=== PATIENT | female | born 1995 | race Caucasian/White ===

== ENCOUNTER 2020-08-31 15:33 | Outpatient (REF) | payer OTHER, SELFPAY ==
[2020-09-03 18:11] LABS: C. trachomatis RNA TMA DETECTED (NOT DETECTED); N. gonorrhoeae RNA TMA NOT DETECTED (NOT DETECTED)
== END 2020-08-31 15:34 | disposition home or self-care (01) ==
LOC: HO.LAB 15:33
PROVIDERS: PCP Internal Medicine; Visit Provider Advanced Practice Midwife
DX: O99.320 Drug use complicating pregnancy, unspecified trimester (principal); F12.90 Cannabis use, unspecified, uncomplicated; O21.9 Vomiting of pregnancy, unspecified; Z3A.00 Weeks of gestation of pregnancy not specified
CPT/HCPCS: 36415; 87491; 87591; 99212

== ENCOUNTER 2020-09-06 14:41 | Outpatient (REF) | payer OTHER, SELFPAY ==
--- NOTE | ~2020-09-06 | US_ITS ---
EXAMINATION: US OBSTETRICAL ULTRASOUND CLINICAL INFORMATION: Check size and dates COMPARISON: None. LMP: 06/30/2020. Gestational age by maternal dates is 9 weeks 5 days. Estimated date of delivery by maternal dates is 04/06/2021. TECHNIQUE: Transabdominal abdominal first trimester OB ultrasound FINDINGS: There is a single intrauterine gestational sac with visible yolk sac, embryo/fetus, and cardiac activity. There is a 0.6 x 1.1 x 1.3 cm anechoic area adjacent to the gestational sac questionable for a small subchorionic hemorrhage or hematoma. HR: 152 beats per minute. CRL (crown rump length): 2.6 cm (9 weeks 3 days +/- 4 days). MIKE (estimated date of delivery): 04/08/2021 +/- 4 days. MATERNAL ADNEXA: The right maternal ovary measures 3.6 x 1.9 x 2.5 cm. The left maternal ovary measures 3.1 x 2 x 2.3 cm. there is a 1.8 x 1.1 x 1 cm complex left ovarian cyst probably representing a corpus luteum. There is no significant maternal adnexal mass. No maternal pelvic ascites. US/US OB <= 14 weeks fetus IMPRESSION: 1. Single intrauterine gestation with ultrasound gestational age of 9 weeks 3 days +/- 4 days. 2. Estimated date of delivery is 04/08/2021 +/- 4 days. 3. No maternal adnexal mass or pelvic ascites.
== END 2020-09-06 14:42 | disposition home or self-care (01) ==
LOC: HO.US 14:41
PROVIDERS: PCP Internal Medicine; Visit Provider Advanced Practice Midwife
DX: O26.849 Uterine size-date discrepancy, unspecified trimester (principal)
CPT/HCPCS: 76801

== ENCOUNTER → 2020-09-21 13:57 | Outpatient (BNVA) | payer OTHER, SELFPAY | PROVIDERS: PCP Internal Medicine; Visit Provider Advanced Practice Midwife ==

== ENCOUNTER → 2020-09-26 14:06 | Outpatient (BNVA) | payer OTHER, SELFPAY | PROVIDERS: PCP Internal Medicine; Visit Provider Advanced Practice Midwife | DX: Z34.90 Encounter for supervision of normal pregnancy, unspecified, unspecified trimester (principal) | CPT/HCPCS: 99212 ==

== ENCOUNTER 2020-10-31 13:17 | Outpatient (REF) | payer OTHER, SELFPAY ==
[2020-11-01 09:37] LABS: CT PCR NOT DETECTED (Not Detect.); NG PCR NOT DETECTED (Not Detect.)
[2020-11-01 09:51] LABS: BV Int Neg Control Negative (Negative); BV Int Pos Control Positive (Positive)
== END 2020-10-31 13:18 | disposition home or self-care (01) ==
LOC: HO.LAB 13:17
PROVIDERS: PCP Internal Medicine; Visit Provider Obstetrics & Gynecology
DX: O46.91 Antepartum hemorrhage, unspecified, first trimester (principal); O26.841 Uterine size-date discrepancy, first trimester; O99.340 Other mental disorders complicating pregnancy, unspecified trimester; F31.9 Bipolar disorder, unspecified; F90.9 Attention-deficit hyperactivity disorder, unspecified type; F43.10 Post-traumatic stress disorder, unspecified; F60.9 Personality disorder, unspecified; O99.330 Smoking (tobacco) complicating pregnancy, unspecified trimester; Z3A.09 9 weeks gestation of pregnancy; Z88.2 Allergy status to sulfonamides; Z88.7 Allergy status to serum and vaccine
CPT/HCPCS: 81003; 87480; 87491; 87510; 87591; 87660; 88142; 99212

== ENCOUNTER 2020-11-09 14:34 | Outpatient (REF) | payer OTHER, SELFPAY ==
--- NOTE | ~2020-11-09 | US_ITS ---
EXAMINATION: US OBSTETRICAL CLINICAL INFORMATION: 24-year-old at 18.6 weeks of gestation Screening for anomaly COMPARISON: 09/06/2020 TECHNIQUE: Real-time transabdominal ultrasound was performed using C1-5 megahertz transducer. FINDINGS: A single, active, fetus is seen in vertex presentation. The placenta is posterior without previa, and the amniotic fluid volume is wnl. MEASUREMENTS: 1. Biparietal Diameter: 4.4 cm; 19.2 wks 2. Occipital Frontal Diameter: 5.3 cm 3. Head Circumference: 15.8 cm; 18.5 wks 4. Abdominal Circumference: 13.7 cm; 19.1 wks 5. Femur Length: 2.98 cm; 19.2 wks 6. Humerus Length: 2.8 cm; 19.0 wks 7. Tibia Length: 2.6 cm; 19.1 wks 8. Ulna Length: 2.5 cm; 19.0 wks 9. Lateral ventricle: 0.63 cm 10. Cerebellum: 1.8 cm; 18.6 wks 11. Cisterna Magna: 0.3 cm 12. Nuchal Fold: 3.5 mm 13. Heart Rate: 150 beats per minute Rt ovary: normal Lt ovary: normal Cervical length 4.6 cm on T/A. GESTATIONAL AGE: 1. Established GA: 18.6 wks 2. GA from [facility]: 19.1 wks ESTIMATED DATE OF DELIVERY: 1. Established MIKE: 04/06/2021 2. MIKE from [facility]: 04/04/2021 ANATOMY: The visualized anatomy includes but not limited to: 1. Cranium: Normal 2. Intracranial anatomy: cavum septum pellucidi, lateral ventricles, choroid plexus, cerebellum, posterior fossa, third and fourth ventricles. 3. face: orbits, lip/palate, profile, nasal bone 4. Heart: four-chamber view of the heart, ventricular septum, foramen ovale, pulmonary vein, left and right outflow tracts, three-vessel view, 3 vessel trachea view, aortic and ductal arches, situs.. 5. Diaphragm: Normal 6. Abdominal wall: Normal 7. Cord Insertion: Normal 8. Spine: Cervical, thoracic, lumbar, sacral. 9. Stomach: Normal size and shape 10. Right Kidney: Normal 11. Left Kidney: Normal 12. 3 vessel cord: Normal 13. Upper extremity: Open hands, fifth digit. 14. Lower extremity: Tibia, fibula, bilateral feet. 15. Bladder: Normal 16. Genitalia: Female, patient not aware US/US OB /maternal detail IMPRESSION: 1. Single, living, intrauterine with appropriate biometry. 2. Normal survey DISCUSSION: I reviewed today's ultrasound findings. We discussed the limitations of ultrasound in diagnosing aneuploidy and other congenital abnormalities. I reviewed the differences between screening test and diagnostic test. Amniocentesis was discussed and declined. She was informed that the baseline incidence of congenital abnormalities is approximately 3-5%. Not all these conditions are diagnosable in utero. RECOMMENDATIONS: 1. f/u PRN Thank you for allowing me to participate in her care. This note was generated with a voice recognition program. Please excuse any errors which may have been overlooked during my review of this note. Sometimes these errors may affect the content or meaning of a given sentence.
== END 2020-11-09 14:35 | disposition home or self-care (01) ==
LOC: HO.US 14:34
PROVIDERS: PCP Internal Medicine; Visit Provider Obstetrics & Gynecology
DX: O35.9XX0 Maternal care for (suspected) fetal abnormality and damage, unspecified, not applicable or unspecified (principal); Z3A.18 18 weeks gestation of pregnancy
CPT/HCPCS: 76811

== ENCOUNTER 2021-03-21 14:11 | Outpatient (REF) | payer OTHER, SELFPAY ==
[2021-03-22 02:56] LABS: CT PCR NOT DETECTED (Not Detect.); NG PCR NOT DETECTED (Not Detect.)
[2021-03-22 11:30] LABS: BV Int Neg Control Negative (Negative); BV Int Pos Control Positive (Positive)
== END 2021-03-21 14:12 | disposition home or self-care (01) ==
LOC: HO.LAB 14:11
PROVIDERS: Visit Provider Advanced Practice Midwife
DX: O09.30 Supervision of pregnancy with insufficient antenatal care, unspecified trimester (principal); Z59.9 Problem related to housing and economic circumstances, unspecified; Z3A.37 37 weeks gestation of pregnancy
CPT/HCPCS: 81003; 87081; 87480; 87491; 87510; 87591; 87660; 99212

== ENCOUNTER 2021-03-22 11:22 | Outpatient (REF) | payer OTHER, SELFPAY ==
--- NOTE | ~2021-03-22 | US_ITS ---
EXAMINATION: US OBSTETRICAL FOLLOW UP WITH BIOPHYSICAL PROFILE CLINICAL INFORMATION: Z34.90 - Encounter for supervision of normal . Question leaking fluid. COMPARISON: Obstetrical ultrasound 11/09/2020, 09/06/2020 TECHNIQUE: Real time transabdominal imaging with color and M-mode Doppler. POSITION: Cephalic PLACENTA: Posterior lateral AMNIOTIC FLUID INDEX: 9.75 cm MEASUREMENTS: The initial dating ultrasound dated provided an estimated date of delivery of 04/08/2021. This would project today to a of 37 weeks 4 days. biometric measurements are as follows: Biparietal Diameter: 9.0 cm (36 weeks 3 days) Occipital Frontal Diameter: 11.2 cm Head Circumference: 32.3 cm (36 weeks 4 days) Abdominal Circumference: 32.0 cm (36 weeks 0 days) Femur Length: 7.1 cm (36 weeks 4 days) The standard deviation for the above measurements is +/- 3 weeks. ESTIMATED WEIGHT: The EFW is 2899 grams +/- 423 grams (6 lbs 6 oz +/- 15 oz). This is at the 22nd percentile. BIOPHYSICAL PROFILE: Biophysical profile is performed over 30 minutes with assessment of breathing, gross body movement, tone, and qualitative amniotic fluid volume. Each matrix is scored 0 or 2, depending if the metric is present. Maximum total score possible is 8. Motion: 2 Tone: 2 Breathin Amniotic Fluid: 2 Total score: 8 HR: 156 bpm US/US OB biophysical profile IMPRESSION: 1. Single intrauterine gestation in cephalic position with posterior lateral placenta. 2. EFW: 2899 grams +/- 423 grams (6 lbs 6 oz +/- 15 oz). This is at the 22nd percentile. 3. KRISTOPHER: 9.75 cm. 4. BPP score: 8 (scale 0-8).
[2021-03-22 12:38] LABS: MANUAL DIFF FLAG NO
[2021-03-22 12:45] LABS: Basophils Percent Auto 0.4 % (0-2); Eosinophils Absolute Auto 0.2 X10*3/uL (0.0-0.4); Hematocrit 31.2 % (37-47); Hemoglobin 10.3 g/dl (12.0-16.0); Imm Gran Abs Auto 0.07 X10*3/uL (0.00-0.03); Imm Gran Pct Auto 0.7 % (0.0-0.4); Lymphocytes Absolute Auto 2.3 X10*3/uL (1.2-4.9); Lymphocytes Percent Auto 24.9 % (20-40); Mean Corpuscular Hemoglobin 29.4 pg (27.0-33.0); Mean Corpuscular Volume 89.1 fL (80-98); Monocytes Absolute Auto 0.6 X10*3/uL (0.1-1.2); Monocytes Percent Auto 6.8 % (2-11); Neutrophils Absolute Auto 6.1 X10*3/uL (2.0-8.3); Neutrophils Percent Auto 65.2 % (45-73); Platelet Count 223 X10*3/uL (160-400); Red Cell Distribution Width 13.3 % (11.0-16.0); White Blood Count 9.4 X10*3/uL (4.8-10.8)
[2021-03-22 13:20] LABS: Syphilis Screen Nonreactive (Nonreactive)
[2021-03-22 13:28] LABS: Amphetamine Screen Urine Not Detected (Not Detect); Barbiturates, Urine Not Detected (Not Detect); Benzodiazepines Screen Urine Not Detected (Not Detect); Cannabinoid Screen Urine Not Detected (Not Detect); Cocaine Screen Urine Not Detected (Not Detect); Fentanyl, urine Not Detected (Not Detect); Opiate Screen Urine Not Detected (Not Detect); Phencyclidine Screen Urine Not Detected (Not Detect)
[2021-03-23 17:07] LABS: Rubella IgG Antibody 1.12 Index; Varicella IgG Antibody <135.00 index
[2021-03-25 08:11] LABS: HBsAGNum1 0.15 S/CO (0.00-0.99); HIV AB/AG Nonreactive (Nonreactive); HIV Num 1 0.06 S/CO (0.00-0.99); Hepatitis B Surface Antigen Negative (Negative); ~HepC Num1 0.09 S/CO (0.00-0.79); ~Hepatitis C Antibody Nonreactive (Nonreactive)
== END 2021-03-22 11:23 | disposition home or self-care (01) ==
LOC: HO.US 11:22
PROVIDERS: Visit Provider Advanced Practice Midwife
DX: O09.30 Supervision of pregnancy with insufficient antenatal care, unspecified trimester (principal); Z3A.37 37 weeks gestation of pregnancy; Z59.9 Problem related to housing and economic circumstances, unspecified
CPT/HCPCS: 76819; 80307; 85025; 86762; 86780; 86787; 86803; 87086; 87340; 87389

== ENCOUNTER → 2021-08-05 14:35 | Outpatient (BNVA) | payer OTHER, SELFPAY | PROVIDERS: Visit Provider Advanced Practice Midwife ==